=== PATIENT | female | born 1985 | race Caucasian/White ===

== ENCOUNTER 2017-07-05 14:32 | Inpatient (IN) | payer OTHER ==
[2017-07-05] MEDS ORDERED: Buffered Lidocaine 0.9% SYRIN* 5 ML/SYR SYRINGE ONE (15:21)
[2017-07-05] MEDS ORDERED: Dinoprostone* 10 MG VAG.SUPP VAGINAL ONE (16:14)
[2017-07-05 17:10] LABS: ABS Basophils 0 10^3/ul (0-0.2); ABS Eosinophils 0 10^3/ul (0-0.6); ABS Lymphocytes 1.5 10^3/ul (1.0-4.8); ABS Monocytes 0.3 10^3/ul (0-0.8); ABS Neutrophils 5.4 10^3/ul (1.5-7.7); ABS Nucleated RBC 0 10^3/ul; Eosinophil % 0.2 % (0-6); Hematocrit 34 % (35-47); Hemoglobin 11.7 g/dl (12.0-16.0); Lymphocyte % 20.7 % (25-47); Mean Corpuscular HGB Conc 35 g/dl (31-36); Mean Corpuscular Hemoglobin 32 pg (27-31); Mean Corpuscular Volume 91 fL (80-97); Mean Platelet Volume 11 um3 (7.4-10.4); Nucleated Red Blood Cells % 0.1; Platelet Count 155 10^3/ul (150-450); Red Cell Distribution Width 15 % (10.5-15); White Blood Count 7.2 10^3/ul (3.5-10.8)
[2017-07-06] MEDS ORDERED: Dinoprostone* 10 MG VAG.SUPP VAGINAL ONE (10:25)
--- NOTE | 2017-07-06 11:46 | PTEDU ---
Patient Name: ANEUDY LEOS ANEUDY LEOS selected video: Never Ever Shake a Baby to view on 07/06/2017 at 11:45:30 AM from [id number]
--- NOTE | 2017-07-06 11:55 | PTEDU ---
Patient Name: ANEUDY LEOS ANEUDY LEOS selected video: BBOB: Nurturing Your Gorgeous &Growing Baby by to view on 07/06/2017 at 11:54:37 AM [id number]
[2017-07-06] MEDS ORDERED: OBEPIDURAL* 250 ML EPIDURAL ONE (20:36)
[2017-07-06] MEDS ORDERED: Phenylephrine IV* 40 MCG/ML 10 ML SYRINGE IV PUSH PRN ×2 (21:26)
[2017-07-06] MEDS ORDERED: Sodium Citrate/Citric Acid* 15 ML UDC PO PRN (21:26)
[2017-07-06] MEDS ORDERED: OBEPIDURAL* 250 ML EPIDURAL SCH (22:00)
[2017-07-06] MEDS ORDERED: Oxytocin in LR* 20 UNITS/1,000 ML BAG IVPB SCH (23:45)
[2017-07-06] MEDS ORDERED: Oxytocin in LR* 20 UNITS/1,000 ML BAG IVPB ONE (23:50)
[2017-07-07] MEDS ORDERED: Acetaminophen TAB* 325 MG PO PRN (12:27)
[2017-07-07] MEDS ORDERED: Glycerin ADULT SUPP PR PRN (12:27)
[2017-07-07] MEDS ORDERED: Simethicone TAB* 80 MG TAB.CHEW PO SCH (12:30)
[2017-07-07] MEDS: Docusate CAP* 100 MG PO SCH (15:08)
[2017-07-07] MEDS: Ibuprofen TAB* 600 MG PO PRN (15:08)
[2017-07-07] MEDS: Witch Hazel PAD* JAR TOPICAL PRN (15:09)
[2017-07-07] MEDS: Dibucaine 1% 28.35 GM TUBE PR PRN (15:09)
[2017-07-07] MEDS ORDERED: Ammonia Inhalant* 1 EA AMP ONE (16:14)
[2017-07-08] MEDS: Docusate CAP* 100 MG PO SCH ×4 (00:53→21:11)
[2017-07-08] MEDS ORDERED: Phenylephrine INJ* 10 MG/ML 1 ML VIAL (10 MG) ONE (04:51)
[2017-07-08] MEDS ORDERED: Phenylephrine IV* 40 MCG/ML 10 ML SYRINGE ONE (04:52)
[2017-07-08 06:35] LABS: ABS Basophils 0 10^3/ul (0-0.2); ABS Eosinophils 0.1 10^3/ul (0-0.6); ABS Lymphocytes 1.6 10^3/ul (1.0-4.8); ABS Monocytes 0.5 10^3/ul (0-0.8); ABS Neutrophils 9.8 10^3/ul (1.5-7.7); ABS Nucleated RBC 0 10^3/ul; Eosinophil % 0.4 % (0-6); Hematocrit 31 % (35-47); Hemoglobin 10.7 g/dl (12.0-16.0); Mean Corpuscular HGB Conc 35 g/dl (31-36); Mean Corpuscular Hemoglobin 32 pg (27-31); Mean Corpuscular Volume 90 fL (80-97); Mean Platelet Volume 10 um3 (7.4-10.4); Nucleated Red Blood Cells % 0; Platelet Count 133 10^3/ul (150-450); Red Blood Count 3.38 10^6/ul (4.0-5.4); Red Cell Distribution Width 15 % (10.5-15)
[2017-07-08] MEDS: Witch Hazel PAD* JAR TOPICAL PRN (08:44)
[2017-07-08] MEDS: Dibucaine 1% 28.35 GM TUBE PR PRN (08:44)
[2017-07-08] MEDS ORDERED: Ferrous Gluconate TAB* 324 MG TAB PO SCH (09:00)
[2017-07-08] MEDS: Ibuprofen TAB* 600 MG PO PRN ×2 (11:51→17:30)
[2017-07-08 12:36] VITALS: BP 126/99
[2017-07-09] MEDS: Ibuprofen TAB* 600 MG PO PRN ×2 (04:22→10:10)
[2017-07-09] MEDS: Docusate CAP* 100 MG PO SCH (10:10)
[2017-07-09] MEDS: Witch Hazel PAD* JAR TOPICAL PRN (10:49)
[2017-07-09] MEDS: Dibucaine 1% 28.35 GM TUBE PR PRN (10:50)
== END 2017-07-09 11:22 | disposition home or self-care (01) | DRG 775 ==
LOC: MCHOBOUT 14:32 → MCHOB 15:06
PROVIDERS: ADMIT Obstetrics & Gynecology; ATTEND Obstetrics & Gynecology
PROC: 10E0XZZ Delivery of Products of Conception, External Approach (ICD-10-PCS; principal; 2017-07-07)
PROC: 3E033VJ Introduction of Other Hormone into Peripheral Vein, Percutaneous Approach (ICD-10-PCS; 2017-07-07)
PROC: 10907ZC Drainage of Amniotic Fluid, Therapeutic from Products of Conception, Via Natural or Artificial Opening (ICD-10-PCS; 2017-07-07)
PROC: 0HQ9XZZ Repair Perineum Skin, External Approach (ICD-10-PCS; 2017-07-07)
DX: O14.94 Unspecified pre-eclampsia, complicating childbirth (principal); O71.5 Other obstetric injury to pelvic organs; O32.6XX0 Maternal care for compound presentation, not applicable or unspecified; O69.81X0 Labor and delivery complicated by cord around neck, without compression, not applicable or unspecified; Z3A.37 37 weeks gestation of pregnancy; Z37.0 Single live birth
CPT/HCPCS: 36415; 82565; 85025; 86850; 86900; 86901; A9270-GY

== ENCOUNTER 2018-04-23 12:16 | Observation (INO) | payer OTHER ==
[2018-04-23 13:34] LABS: Urine Appearance Cloudy; Urine Blood Negative (Negative); Urine Color Amber; Urine Ketones Trace (Negative); Urine Protein Negative (Negative); Urine Specific Gravity 1.028 (1.010-1.030); Urine Urobilinogen Negative (Negative)
[2018-04-23 13:35] LABS: Hematocrit 38 % (35-47); Hemoglobin 13.2 g/dl (12.0-16.0); Mean Corpuscular HGB Conc 35 g/dl (31-36); Mean Corpuscular Hemoglobin 31 pg (27-31); Mean Corpuscular Volume 89 fL (80-97); Mean Platelet Volume 8.2 fL (7.4-10.4); Platelet Count 253 10^3/ul (150-450); Red Blood Count 4.29 10^6/ul (4.00-5.40); Red Cell Distribution Width 13 % (10.5-15); White Blood Count 11.6 10^3/ul (3.5-10.8)
[2018-04-23 13:58] LABS: EGFR Non-African American 108.2 (>60)
--- NOTE | 2018-04-23 14:04 | ED ---
Abdominal Pain/Female - HPI Summary HPI Summary: A 32 y/o female presents to [facility] with a chief complaint of abd pain from 10: 45 to 11:50 on 04/23/18. She called Dr. Silverio, her PCP, who referred the patient to the ED. She reports that 9 months ago she had a baby, A0, and 5 days after that she had a uterine infection. She claims that her symptoms are similar. However, in the ED she claims that her pain has been alleviated with her pain at onset being a six or seven out of ten and currently her pain being a two or three out of ten. She states 04/15/18 was the beginning of her LNMP and she has been having them for three months. She denies a Hx of ovarian cyst and denies a SHx. She admits to occasional EtOH use. She endorses right abd pain and skin diaphoresis but denies vaginal bleeding, body aches, Fever, Chills , Erythema (eyes), Sore throat, Chest pain, Shortness of Breath, Cough, Vomiting , Dysuria, Hematuria, Myalgia, Edema, Rash and Dizziness. - History of Current Complaint Chief Complaint: EDAbdPain Stated Complaint: LOWER ABD PAIN Time Seen by Provider: 04/23/18 12:43 Hx Obtained From: Patient Onset/Duration: Sudden Onset, Lasting Minutes, Resolved Timing: Intermittent Episode Lasting - 65 mins Severity Initially: Moderate Severity Currently: Mild Pain Intensity: 3 Pain Scale Used: 0-10 Numeric Location: Diffuse - Right Radiates: No Character: Sharp Aggravating Factor(s): Nothing Alleviating Factor(s): Nothing Associated Signs and Symptoms: Positive: Diaphoresis, Nausea. Negative: Cough, Chest Pain, Dizzy, Vaginal Bleeding, Vomiting Allergies/Adverse Reactions: Allergies Allergy/AdvReac Type Severity Reaction Status Date / Time No Known Allergies Allergy Verified 04/23/18 12:25 Home Medications: Home Medications Ibuprofen [Advil] 200 - 400 mg PO Q6H PRN 04/23/18 [History Confirmed 04/23/18] PMH/Surg Hx/FS Hx/Imm Hx Endocrine/Hematology History: Denies: Hx Diabetes Cardiovascular History: Denies: Hx Coronary Artery Disease, Hx Hypertension Infectious Disease History: No Infectious Disease History: Denies: Traveled Outside the [place] in Last 30 Days - Family History Known Family History: Positive: Diabetes - maternal grandmother Negative: Cardiac Disease, Hypertension - Social History Alcohol Use: Occasionally Substance Use Type: Reports: None Smoking Status (MU): Never Smoked Tobacco Review of Systems Negative: Fever, Chills Negative: Erythema Negative: Ear Ache Negative: Chest Pain Negative: Shortness Of Breath, Cough Positive: Abdominal Pain, Nausea. Negative: Vomiting Genitourinary: Negative - vaginal discharge Negative: dysuria, hematuria Musculoskeletal: Negative - body aches Negative: Myalgia, Edema Negative: Rash Neurological: Negative - dizziness All Other Systems Reviewed And Are Negative: Yes Physical Exam - Summary Physical Exam Summary: Constitutional: Well-developed, Well-nourished, Alert. (-) Distressed Skin: Warm, Dry HENT: Normocephalic; Atraumatic Eyes: Conjunctiva normal Neck: Musculoskeletal ROM normal neck. (-) JVD, (-) Stridor, (-) Tracheal deviation Cardio: Rhythm regular, rate normal, Heart sounds normal; Intact distal pulses; The pedal pulses are 2+ and symmetric. Radial pulses are 2+ and symmetric. (-) Murmur Pulmonary/Chest wall: Effort normal. (-) Respiratory distress, (-) Wheezes, (-) Rales Abd: Soft, (+) right adnexal tenderness (-) Distension, (-) Guarding, (-) Rebound Musculoskeletal: (-) Edema Lymph: (-) Cervical adenopathy Neuro: Alert, Oriented x3 Psych: Mood and affect Normal Triage Information Reviewed: Yes Vital Signs On Initial Exam: Initial Vitals Temp Pulse Resp BP Pulse Ox 98.6 F 78 16 99/70 98 04/23/18 12:22 04/23/18 12:22 04/23/18 12:22 04/23/18 12:22 04/23/18 12:22 Vital Signs Reviewed: Yes Diagnostics - Vital Signs Vital Signs Temp Pulse Resp BP Pulse Ox 04/23/18 12:22 98.6 F 78 16 99/70 98 - Laboratory Lab Results: Lab Results 04/23/18 04/23/18 04/23/18 Range/Units 13:04 13:04 13:16 WBC 11.6 H (3.5-10.8) 10^3/ul RBC 4.29 (4.00-5.40) 10^6/ul Hgb 13.2 (12.0-16.0) g/dl Hct 38 (35-47) % MCV 89 (80-97) fL MCH 31 (27-31) pg MCHC 35 (31-36) g/dl RDW 13 (10.5-15) % Plt Count 253 (150-450) 10^3/ul MPV 8.2 (7.4-10.4) fL Sodium 138 (135-145) mmol/L Potassium 3.5 (3.5-5.0) mmol/L Chloride 104 (101-111) mmol/L Carbon Dioxide 28 (22-32) mmol/L Anion Gap 6 (2-11) mmol/L BUN 16 (6-24) mg/dL Creatinine 0.63 (0.51-0.95) mg/dL Est GFR ( Amer) 130.9 (>60) Est GFR (Non-Af Amer) 108.2 (>60) BUN/Creatinine Ratio 25.4 H (8-20) Glucose 95 (70-100) mg/dL Calcium 9.2 (8.6-10.3) mg/dL Total Bilirubin 1.00 (0.2-1.0) mg/dL AST 13 (13-39) U/L ALT 8 (7-52) U/L Alkaline Phosphatase 30 L (34-104) U/L C-Reactive Protein 1.01 (<8.01) mg/L Total Protein 6.7 (6.4-8.9) g/dL Albumin 4.3 (3.2-5.2) g/dL Globulin 2.4 (2-4) g/dL Albumin/Globulin Ratio 1.8 (1-3) Beta HCG, Quant Pending Urine Color Nicole Urine Appearance Cloudy Urine pH 5.0 (5-9) Ur Specific [place] 1.028 (1.010-1.030) Urine Protein Negative (Negative) Urine Ketones Trace A (Negative) Urine Blood Negative (Negative) Urine Nitrate Negative (Negative) Urine Bilirubin Negative (Negative) Urine Urobilinogen Negative (Negative) Ur Leukocyte Esterase Negative (Negative) Urine Glucose Negative (Negative) Result Diagrams: 04/23/18 13:04 04/23/18 13:04 Lab Statement: Any lab studies that have been ordered have been reviewed, and results considered in the medical decision making process. - CT abdomen/pelvis CT Interpretation Completed By: Radiologist Summary of CT Findings: The constellation of findings given the clinical context is consistent with early. appendicitis. No periappendiceal abscess or resulting bowel obstruction. Nonemergent follow-up ultrasound suggested for further characterization of the probable. hepatic hemangioma at the central RIGHT hepatic lobe. Taylor images saved on the [facility] PACS. ED physician has reviewed this imaging report. - Ultrasound No standard instances Ultrasound Interpretation Completed By: Radiologist Summary of Ultrasound Findings: Transvaginal US impression: No suspicious ovarian or adnexal region lesions evident. Physiologic small volume of free fluid at the cul-de-sac and LEFT adnexal region. ED physician has reviewed this imaging report. Appendix US impression: Top normal diameter grossly noncompressible appendix visualized anterior to the RIGHT. psoas muscle. No periappendiceal free fluid, abscess collection, or lymphadenopathy evident to. confirm acute inflammation of the appendix. Tenderness is noted when scanning over the appendix on real-time exam. ED physician has reviewed this imaging report. Re-Evaluation - Re-Evaluation First Eval Re-Evaluation Time: 14:15 Change: Worse Comment: Right adnexal and abd tenderness returned. Discussed CT followed by Pelvic exam. Second Eval Re-Evaluation Time: 15:35 Change: Unchanged Comment: Patient reports the exam is painful but she has a good appetite. Third Eval Re-Evaluation Time: 16:10 Change: Unchanged Comment: Pelvic exam attended by Marysol. Pt has right adnexal tenderness and worsening RLQ abd tenderness. Dr. Hale, surgeon, evaluated her. Plan for CT imaging vs hospital observation. Fourth Eval Re-Evaluation Time: 18:20 Change: Unchanged Comment: Discussed plan with Pt. Abdominal Pain Fem Course/Dx - Course Course Of Treatment: A 32 y/o female presents to [facility] with a chief complaint of abd pain from 10:45 to 11:50 on 04/23/18. She called Dr. Silverio, her PCP, who referred the patient to the ED. She reports that 9 months ago she had a baby , A0, and 5 days after that she had a uterine infection. She claims that her symptoms are similar. However, in the ED she claims that her pain has been alleviated with her pain at onset being a six or seven out of ten and currently her pain being a two or three out of ten. She states 04/15/18 was the beginning of her LNMP and she has been having them for three months. She denies a Hx of ovarian cyst and denies a SHx. She admits to occasional EtOH use. She endorses right abd pain and skin diaphoresis but denies vaginal bleeding, body aches, Fever, Chills, Erythema (eyes), Sore throat, Chest pain, Shortness of Breath, Cough, Vomiting, Dysuria, Hematuria, Myalgia, Edema, Rash and Dizziness. Her physical exam revealed right adnexal tenderness. Transvaginal US impression: No suspicious ovarian or adnexal region lesions evident. Physiologic small volume of free fluid at the cul-de-sac and LEFT adnexal region. Case discussed with Dr. Valentin who reports the patient's appendix is at the top end of normal size and is TTP. Appendix US impression: Top normal diameter grossly noncompressible appendix visualized anterior to the RIGHT. psoas muscle. No periappendiceal free fluid, abscess collection, or lymphadenopathy evident to. confirm acute inflammation of the appendix. Tenderness is noted when scanning over the appendix on real-time exam. In the ED course the patient has been given Iohexol and Sodium Chloride IV. Pelvic exam attended by Marysol. Pt has right adnexal tenderness and worsening RLQ abd tenderness. Dr. Hale, surgeon, evaluated her. Plan for CT imaging vs hospital observation. Lab results obtained with a mildly elevated WBC at 11.6. CT abdomen/pelvis impression: The constellation of findings given the clinical context is consistent with early. appendicitis. No periappendiceal abscess or resulting bowel obstruction. Nonemergent follow-up ultrasound suggested for further characterization of the probable. hepatic hemangioma at the central RIGHT hepatic lobe. Taylor images saved on the [facility] PACS. The patient will be admitted to Dr. Hale and is agreeable with this plan. Dx: RLQ pain, early appendicitis. - Diagnoses Provider Diagnoses: RLQ abdominal pain, Appendicitis - Provider Notifications Discussed Care Of Patient With: Jeremías Valentin Time Discussed With Above Provider: 15:30 Instructed by Provider To: Other - Patient's appendix is at the top end of normal size and is TTP. Discharge - Discharge Plan Referrals: Ayleen Silverio MD [Primary Care Provider] - - Attestation Statements Document Initiated by Scribe: Yes Documenting Scribe: Que Dumont Provider For Whom Scribe is Documenting (Include Credential): Quentin Olsen MD Scribe Attestation: I, Que Dumont, scribed for Quentin Olsen MD on 04/23/18 at [id number]. Consult Consult: At 16:15 Dr. Hale, surgeon evaluated the patient. Plan for CT imaging vs hospital observation. At 18:15 Dr. Hale accepted the pt for admission.
[2018-04-23] MEDS ORDERED: NS 0.9% 1000 ML* 1,000 ML IV ONE (14:16)
[2018-04-23] MEDS ORDERED: Iohexol 300* (CONTRAST) 10 ML SDV IV ONE (15:47)
[2018-04-23] MEDS ORDERED: ceFOXitin 2 GM IVPREMIX* 2 GM/50 ML BAG IVPB ONE (18:16)
[2018-04-23] MEDS ORDERED: Buffered Lidocaine 0.9% SYRIN* 5 ML/SYR SYRINGE INTRADERM ONE (19:26)
[2018-04-23] MEDS ORDERED: Morphine VIAL* 4 MG/ML VIAL (1 ml vial) IV ONE (19:49)
[2018-04-23] MEDS ORDERED: Ondansetron INJ* 2 MG/ML VIAL IV ONE (19:49)
[2018-04-23] MEDS ORDERED: fentaNYL* 50 MCG/ML 2 ML VIAL (100 MCG VIAL) ONE (20:32)
[2018-04-23] MEDS ORDERED: Midazolam* 1 MG/ML 2 ML VIAL (2 MG) ONE (20:32)
[2018-04-23] MEDS ORDERED: Famotidine IV* 10 MG/ML 2 ML (20 mg) ONE (20:32)
[2018-04-23] MEDS ORDERED: ceFOXitin 2 GM IVPREMIX* 2 GM/50 ML BAG ONE (21:07)
[2018-04-23] MEDS ORDERED: Bupivacaine 0.25% EPI 200,000* 30 ML SDV ONE (21:10)
[2018-04-23] MEDS ORDERED: Lidocaine 2% PF * 5 ML VIAL ONE (21:29)
[2018-04-23] MEDS ORDERED: Succinylcholine* 20 MG/ML 10 ML VIAL ONE (21:34)
[2018-04-23] MEDS ORDERED: Cisatracurium* 2 MG/ML MDV 5 ML ONE (21:34)
[2018-04-23] MEDS ORDERED: Ondansetron INJ* 2 MG/ML VIAL ONE (21:34)
[2018-04-23] MEDS ORDERED: Propofol* 10 MG/ML 20 ML BTL ONE (21:34)
[2018-04-23] MEDS ORDERED: Dexamethasone IV* 4 MG/ML 1 ML (4 MG) ONE (21:34)
[2018-04-23] MEDS ORDERED: Ketorolac INJ* 30 MG/ML 1 ML VIAL ONE (21:47)
[2018-04-23] MEDS ORDERED: fentaNYL* 50 MCG/ML 5 ML VIAL (250 MCG VIAL) ONE (22:08)
[2018-04-23] MEDS ORDERED: diPHENhydraMINE IV* 50 MG/ML 1 ml VIAL (BENADRYL) IV PRN (22:14)
[2018-04-23] MEDS ORDERED: fentaNYL* 50 MCG/ML 2 ML VIAL (100 MCG VIAL) IV PRN (22:14)
[2018-04-23] MEDS ORDERED: Naloxone* 0.4 MG/ML 1 ML VIAL IV PRN (22:14)
[2018-04-23] MEDS ORDERED: DiMENhydriNATE IV* 50 MG/ML VIAL IV PUSH PRN (22:14)
[2018-04-23] MEDS ORDERED: PROCHLORPERAZINE INJ 5 MG/ML 2 ML VIAL IV PRN (22:14)
[2018-04-23] MEDS ORDERED: Acetaminophen TAB* 325 MG PO PRN ×2 (22:14→23:06)
[2018-04-23] MEDS ORDERED: HYDROcodone/ACETAMIN 5-325 MG* 1 TAB PO PRN (22:14)
[2018-04-23] MEDS ORDERED: Scopolamine 1.5 mg* PATCH TRANSDERM PRN (22:14)
--- NOTE | 2018-04-23 23:03 | BRIEFOPN ---
Brief Operative Note - Surgery Procedures: Procedures OPERATIVE REPORT PRE-OP: Acute appendicitis POST-OP:Acute suppurative appendicitis PROCEDURE:laparoscopic appendectomy SURGEON: MD Geoffrey ANESTHESIA:Local with General, Dr. Lester ASST:none IVF:One liter of crystalloid EBL:min SPECIMEN:Appendix DRAIN: none WOUND CLASS:3 COMPLICATIONS: none TO PACU
[2018-04-23] MEDS ORDERED: Ketorolac INJ* 30 MG/ML 1 ML VIAL IV PUSH PRN (23:06)
[2018-04-23] MEDS ORDERED: Ondansetron INJ* 2 MG/ML VIAL IV PRN (23:06)
[2018-04-23] MEDS ORDERED: Morphine INJ* 10 MG/ML 1 ML CARPUJECT IV PRN (23:06)
[2018-04-23] MEDS ORDERED: oxyCODONE/Acetamin 5/325 MG* TAB PO PRN ×2 (23:06→23:08)
[2018-04-23] MEDS ORDERED: NS 0.9% 1000 ML* 1,000 ML IV SCH (23:15)
[2018-04-24] MEDS: ceFOXitin 2 GM IVPREMIX* 2 GM/50 ML BAG IVPB SCH ×2 (02:53→10:58)
--- NOTE | 2018-04-24 04:16 | HP ---
CC: Dr. Ayleen Silverio; [facility].* HISTORY AND PHYSICAL: DATE OF ADMISSION: 04/23/18 CHIEF COMPLAINT: Right lower quadrant abdominal pain. HISTORY OF PRESENT ILLNESS: Patel Oj is a 32-year-old [employer] who, around 10 o'clock this morning, developed a sudden onset of severe, sharp, right lower quadrant abdominal pain that lasted for about an hour to an hour-and-a half, which was quite severe and causing her to lie down. For the pain she took some Motrin, the pain improved somewhat but persisted into the early afternoon and when it was becoming somewhat more uncomfortable she presented to the emergency room. In the emergency room, she was noted to be afebrile. She had no associated nausea or vomiting, but was anorexic on presentation. She denied fevers, shakes , or chills. Her last menstrual period was about 8 to 9 days ago and has been unremarkable. She did have a baby about 9 months ago and she denies history of ovarian cysts. She has had no diarrhea or dysuria. In the emergency room, she was noted to be afebrile. Laboratory workup included a white blood cell count of 11,600. She had normal CRP. Her test was negative. Exam showed right lower quadrant tenderness with some voluntary guarding. A pelvic exam done by the emergency room physician was unremarkable. She underwent the following imaging studies: 1. She underwent a transvaginal ultrasound. This showed no suspicious ovarian or adnexal lesions evident. There was a small amount of fluid in the cul-de- sac in the left adnexa region. 2. She underwent an abdominal ultrasound, specifically the right lower quadrant. I reviewed this study with Dr. Valentin. This showed a top normal grossly noncompressible appendix in the right lower quadrant, but no periappendiceal fluid collection or surrounding inflammation, but the wall may have been mildly thickened. 3. After further discussion of the findings on physical exam as well as her imaging studies, she elected and agreed to undergo a CT scan of the abdomen and pelvis. I also reviewed these imagines. This showed findings most likely consistent with early acute appendicitis with mural enhancement and periappendiceal inflammatory change felt to be appendicitis. Surgical consultation was obtained. PAST MEDICAL HISTORY: Unremarkable. PAST SURGICAL HISTORY: None. MEDICATIONS: Include ibuprofen p.r.n. SOCIAL HISTORY: She is a [employer] professor. She is . She has 1 young daughter at home. She does not smoke. Drinks alcohol on a social basis. REVIEW OF SYSTEMS: Otherwise unremarkable. PHYSICAL EXAMINATION GENERAL: She is a well-developed slender female, appears to be in no apparent distress. She is awake, alert, and conversive and pleasant. VITAL SIGNS: Temperature 98.6, pulse 80, respirations 16, and blood pressure 107/40. HEENT: Regular rate and rhythm without murmurs, rubs, or gallops. LUNGS: Clear to auscultation with normal respiratory effort. ABDOMEN: Soft and nondistended. She had diminished bowel sounds throughout. There are no hernias. There is no distention. She has tenderness with some voluntary guarding in the right lower quadrant. There is no pelvic discomfort. EXTREMITIES: Showed no cyanosis or edema. IMPRESSION: Right lower quadrant abdominal discomfort of a rather sudden onset and not particularly typical of acute appendicitis. However as the course of the day has progressed, she is having worsening right lower quadrant abdominal exam. The above imaging studies were done and the CAT scan shows findings consistent with early acute appendicitis without evidence of abscess or perforation. I had a long discussion with the patient and her regarding these findings. We discussed options of nonoperative management with IV and oral antibiotics. She probably would be a candidate for this and we discussed the risks of recurrence and failure of treatment plus a several day hospital stay with IV antibiotics. My recommendation in this situation is to proceed with a laparoscopic appendectomy this evening for definitive care. After the discussion of this matter, she would like to proceed with surgery. PLAN/RECOMMENDATIONS: Laparoscopic appendectomy. The procedure was discussed with the patient and her and the risks of, but not limited to, bleeding , infection, intraabdominal abscess formation, injury to peritoneal and retroperitoneal structures, possibility of an open procedure, the appendiceal stump leak with abscess, possibility this may not be acute appendicitis and other surgical procedures may need to be performed were all explained. In addition, the risks of anesthesia, deep vein thrombosis, and recovery times were all discussed. She will be kept n.p.o. and will receive a preoperative dose of antibiotics and will proceed to the operating room this evening. [id number]/[facility] #: [id number] IVAN
--- NOTE | 2018-04-24 08:58 | PN ---
Progress Note - Progress Note Date of Service: 04/24/18 SOAP: Subjective: Doing well-tolerating po Ambulating to bathroom No N/V Objective: Temp Pulse Resp BP Pulse Ox 98.2 F 62 16 92/59 97 04/24/18 02:56 04/24/18 02:56 04/24/18 02:56 04/24/18 02:56 04/24/18 02:56 Intake & Output 04/22/18 04/23/18 04/24/18 04/25/18 06:59 06:59 06:59 06:59 Intake Total 2760 990 Output Total 400 Balance 2360 990 Weight 118 lb Intake: IV Fluids 2280 990 ABX - CEFOXITIN 55 NS 990 lr 1000 Oral 480 Output: Urine 400 PEX: Comfortable Lungs are clear Abd is soft and non-distended. Bowel sounds are present. Incision CDI Assessment: POD# 1 s/p lap appy for acute appendicitis Plan: D/C home today No further antibiotics Instructions given Follow up in office next week.
[2018-04-24 09:45] VITALS: BP 84/46
--- NOTE | 2018-04-24 15:57 | OP ---
CC: Ayleen Silverio MD, [facility] * DATE OF OPERATION: 04/23/18 - ROOM #340 DATE OF : 81 SURGEON: Landen Hale MD HR ADMINISTRATOR: None. ANESTHESIOLOGIST: Dr. Lester. ANESTHESIA: General with local. PRE-OP DIAGNOSIS: Acute appendicitis. POST-OP DIAGNOSIS: Acute suppurative appendicitis. OPERATIVE PROCEDURE: Laparoscopic appendectomy. ESTIMATED BLOOD LOSS: Minimal. WOUND CLASSIFICATION: 3 DRAINS: None. COMPLICATIONS: None. SPECIMENS: Appendix. DESCRIPTION OF PROCEDURE: Written informed consent was obtained, the abdomen was marked with indelible ink and preoperative antibiotics were administered. The patient was taken to the operating room, placed in the supine position where sequential compression devices and a warming blanket were applied. General anesthesia was administered and the abdomen was prepped and draped in usual sterile fashion. Time-out verification was completed. Initially, a vertical incision was made at the base of the umbilicus and inferior, and the peritoneal cavity was entered under direct vision. A 12 mm port was then placed and the abdomen was insufflated to 15 mmHg. Under direct vision, a 5 mm left lower quadrant abdominal port was placed and a second 5 mm suprapubic port was placed. There was a small amount of turbid fluid in the right lower quadrant. This was irrigated and suctioned. The terminal ileum and cecum appeared to be unremarkable. The appendix was identified. It was suppuratively inflamed with some fibrinous exudate mainly along its distal half, and was quite firm and indurated. It was grasped and its mesentery was taken from distal to proximal towards the cecum. The proximal third of the appendix was somewhat peritonealized and this was divided to follow the appendix down to the base. The appendix at its base as well as the cecum were unremarkable. Boswell load of a 45 mm EndoGIA staple was then used to divide the appendix at its base. The appendix was placed in an EndoCatch bag and brought out through the umbilical incision. Staple line was intact and hemostasis was assured. The right lower quadrant was irrigated thoroughly. All ports were removed under direct vision of the camera and the umbilical fascia was closed with interrupted 0 Vicryl suture. Skin at all 3 incisions was approximated with subcuticular 4-0 Vicryl suture. Steri-Strips were applied. The patient tolerated the procedure well and was taken to the recovery room in stable condition. [id number]/[facility] #: [id number] IVAN
[2018-04-26] MEDS ORDERED: Scopolamine PATCH Remove* 1 NOTE MISC PATCH OFF ONE (22:16)
== END 2018-04-24 11:45 | disposition home or self-care (01) ==
LOC: ED 12:16 → OR 21:23 → SSU 23:55
PROVIDERS: ADMIT Surgery; ATTEND Surgery
DX: K35.80 Unspecified acute appendicitis (principal); R10.30 Lower abdominal pain, unspecified; R11.0 Nausea
CPT/HCPCS: 36415; 74177; 76705; 76830; 80053; 81003; 84702; 85027; 86140; 87480; 87491; 87510; 87591; 87661; 88304; 90471; 90686; 96365; 96366; 96375; 96376; 99284; A9270-GY; G0008; G0378; J0330; J0694; J1100; J1885; J2250; J2405; J2704; J3010; Q9967

== ENCOUNTER 2020-09-04 22:00 | Inpatient (IN) ==
[2020-09-04] MEDS ORDERED: Lactated Ringers 1000 ml BAG 1,000 ML IV ONE (23:20)
[2020-09-04] MEDS ORDERED: Buffered Lidocaine 1% SYRIN 1 ml INTRADERM ONE (23:20)
[2020-09-04 23:36] LABS: ABS Lymphocytes 1.6 10^3/ul (1.0-4.8); ABS Monocytes 0.4 10^3/ul (0-0.8); ABS Neutrophils 4.3 10^3/ul (1.5-7.7); Eosinophil % 0.7 %; Hematocrit 30 % (35-47); Hemoglobin 10.3 g/dL (12.0-16.0); Lymphocyte % 24.5 %; Mean Corpuscular HGB Conc 35 g/dL (31-36); Mean Corpuscular Hemoglobin 30 pg (27-31); Mean Corpuscular Volume 85 fL (80-97); Mean Platelet Volume 9.9 fL (7.4-10.4); Platelet Count 173 10^3/uL (150-450); Red Cell Distribution Width 15 % (10-15); White Blood Count 6.4 10^3/uL (3.5-10.8)
[2020-09-04] MEDS ORDERED: Lactated Ringers 1000 ml BAG 1,000 ML IV SCH (23:45)
[2020-09-04] MEDS ORDERED: OBEPIDURAL 250 ML EPIDURAL ONE (23:58)
[2020-09-05 00:07] LABS: Urine Benzodiazepine Screen None Detected (None Detect); Urine Cannabinoids Screen None Detected (None Detect); Urine Opiates Screen None Detected (None Detect)
[2020-09-05] MEDS ORDERED: Lactated Ringers 1000 ml BAG 500 ML IV PRN ×2 (01:13)
[2020-09-05] MEDS ORDERED: Lactated Ringers 1000 ml BAG 1,000 ML IV ONE (01:13)
[2020-09-05] MEDS ORDERED: Sodium Citrate/Citric Acid LIQ 15 ML UDC PO PRN (01:13)
[2020-09-05] MEDS ORDERED: Phenylephrine 40 mcg/mL 10mL (400mcg) SYRINGE IV PUSH PRN ×2 (01:13)
[2020-09-05] MEDS ORDERED: Lactated Ringers 1000 ml BAG 1,000 ML IV SCH ×2 (02:00→06:00)
[2020-09-05] MEDS ORDERED: OBEPIDURAL 250 ML EPIDURAL SCH (02:00)
[2020-09-05] MEDS ORDERED: Oxytocin in LR 0 UNITS/0 ML BAG IVPB ONE (05:29)
[2020-09-05] MEDS: Witch Hazel PAD JAR TOPICAL PRN (08:46)
[2020-09-05] MEDS: Dibucaine 1% OINT 28.35 GM TUBE PR PRN (08:46)
[2020-09-06 06:50] LABS: ABS Eosinophils 0.1 10^3/ul (0-0.6); ABS Lymphocytes 1.6 10^3/ul (1.0-4.8); ABS Monocytes 0.3 10^3/ul (0-0.8); ABS Neutrophils 4.7 10^3/ul (1.5-7.7); Eosinophil % 0.9 %; Hematocrit 24 % (35-47); Hemoglobin 8.3 g/dL (12.0-16.0); Lymphocyte % 23.6 %; Mean Corpuscular HGB Conc 34 g/dL (31-36); Mean Corpuscular Hemoglobin 29 pg (27-31); Mean Corpuscular Volume 86 fL (80-97); Mean Platelet Volume 9.2 fL (7.4-10.4); Platelet Count 136 10^3/uL (150-450); Red Blood Count 2.83 10^6 /uL (3.70-4.87); Red Cell Distribution Width 15 % (10-15); White Blood Count 6.6 10^3/uL (3.5-10.8)
[2020-09-06] MEDS: Calcium Carb (TUMS) 500 mg CHEW TAB PO PRN ×3 (09:53→20:21)
[2020-09-07 08:04] VITALS: BP 121/82
[2020-09-07] MEDS: Witch Hazel PAD JAR TOPICAL PRN (10:55)
[2020-09-07] MEDS: Dibucaine 1% OINT 28.35 GM TUBE PR PRN (10:55)
== END 2020-09-07 11:23 | disposition home or self-care (01) ==
LOC: MCHOBOUT 22:00 → MCHOB 22:56
PROVIDERS: ADMIT Obstetrics & Gynecology; ATTEND Obstetrics & Gynecology

== ENCOUNTER 2022-10-25 22:25 | Inpatient (IN) ==
[2022-10-25] MEDS ORDERED: Penicillin G Potassium IV 5,000,000 UNITS in NS 0.9% 100 ml BAG 100 ML IVPB ONE (22:27)
[2022-10-25] MEDS ORDERED: Buffered Lidocaine 1% SYRIN 1 ml INTRADERM ONE (22:27)
[2022-10-25] MEDS ORDERED: Promethazine INJ(RESTRICTED) 25 MG/ML 1 ml VIAL IV PRN (22:27)
[2022-10-25] MEDS ORDERED: Nalbuphine 10 MG/ML 1 ML VIAL IV PRN (22:27)
[2022-10-25 22:57] LABS: ABS Basophils 0.1 10^3/uL (0.0-0.1); ABS Eosinophils 0.1 10^3/uL (0.0-0.5); ABS Lymphocytes 1.8 10^3/uL (1.0-4.8); ABS Monocytes 0.5 10^3/uL (0.0-0.9); ABS Neutrophils 4.3 10^3/uL (1.5-7.6); Eosinophil % 0.9 %; Hematocrit 33.3 % (35-45); Hemoglobin 11.8 g/dL (11.5-14.3); Lymphocyte % 26.6 %; Mean Corpuscular Hemoglobin 31.3 pg (27-33); Mean Corpuscular Hgb Conc 35.5 g/dL (31-36); Mean Corpuscular Volume 88.2 fL (80-97); Mean Platelet Volume 8.8 fL (7.5-11.2); Nucleated Red Blood Cells % 0.1 /100 WBC (0.0-0.4); Platelet Count 209 10^3/uL (150-450); Red Blood Count 3.78 10^6/uL (3.63-4.92); Red Cell Distribution Width 14.7 % (12-17); White Blood Count 6.7 10^3/uL (3.8-11.8)
[2022-10-25] MEDS: Penicillin G Potassium IV 3,000,000 UNITS in NS 0.9% 100 ml BAG 100 ML IVPB SCH (23:30)
[2022-10-25 23:32] LABS: Urine Benzodiazepine Screen None Detected (None Detect); Urine Cannabinoids Screen None Detected (None Detect); Urine Opiates Screen None Detected (None Detect)
[2022-10-26] MEDS: Lactated Ringers 1000 ml BAG 1,000 ML IV SCH ×2 (00:03→09:09)
[2022-10-26] MEDS: Penicillin G Potassium IV 3,000,000 UNITS in NS 0.9% 100 ml BAG 100 ML IVPB SCH ×4 (03:48→12:01)
[2022-10-26] MEDS: Lactated Ringers 1000 ml BAG 1,000 ML IV ONE ×2 (06:23→12:23)
[2022-10-26] MEDS ORDERED: Oxytocin in LR 20,000 MILLI.UNIT/1,000 ML BAG IV SCH ×2 (08:30→16:45)
[2022-10-26] MEDS ORDERED: OBEPIDURAL (200 ML) 200 ML EPIDURAL ONE (12:24)
[2022-10-26] MEDS ORDERED: Lidocaine 1% w EPI 1:200,000 SDV 30 ML VIAL ONE (12:25)
[2022-10-26] MEDS ORDERED: Sodium Citrate/Citric Acid LIQ 15 ML UDC PO PRN (13:10)
[2022-10-26] MEDS ORDERED: Lactated Ringers 1000 ml BAG 500 ML IV PRN ×2 (13:10)
[2022-10-26] MEDS ORDERED: Phenylephrine 40 mcg/mL 10mL (400mcg) SYRINGE IV PUSH PRN ×2 (13:10)
[2022-10-26] MEDS ORDERED: Lactated Ringers 1000 ml BAG 1,000 ML IV ONE (13:10)
[2022-10-26] MEDS ORDERED: OBEPIDURAL (200 ML) 200 ML EPIDURAL SCH (14:00)
[2022-10-26] MEDS ORDERED: Lactated Ringers 1000 ml BAG 1,000 ML IV SCH ×3 (14:00→17:00)
[2022-10-26 14:35] LABS: Urine Appearance Clear; Urine Bilirubin Negative (Negative); Urine Blood Negative (Negative); Urine Color Yellow; Urine Glucose Negative (Negative); Urine Ketones Negative (Negative); Urine Nitrite Negative (Negative); Urine Protein Negative (Negative); Urine Specific Gravity 1.012 (1.002-1.030); Urine Urobilinogen Negative (Negative)
[2022-10-26] MEDS ORDERED: Witch Hazel PAD JAR TOPICAL PRN (16:39)
[2022-10-26] MEDS ORDERED: Glycerin ADULT 2.4 gm SUPP PR PRN (16:39)
[2022-10-26] MEDS ORDERED: Dibucaine 1% OINT 28.35 GM TUBE PR PRN (16:39)
[2022-10-27 06:36] LABS: ABS Eosinophils 0.1 10^3/uL (0.0-0.5); ABS Lymphocytes 2.2 10^3/uL (1.0-4.8); ABS Monocytes 0.6 10^3/uL (0.0-0.9); ABS Neutrophils 6.9 10^3/uL (1.5-7.6); Eosinophil % 0.7 %; Hematocrit 30.9 % (35-45); Hemoglobin 10.9 g/dL (11.5-14.3); Lymphocyte % 22.3 %; Mean Corpuscular Hemoglobin 31.4 pg (27-33); Mean Corpuscular Hgb Conc 35.3 g/dL (31-36); Mean Platelet Volume 8.5 fL (7.5-11.2); Platelet Count 176 10^3/uL (150-450); Red Blood Count 3.47 10^6/uL (3.63-4.92); Red Cell Distribution Width 14.9 % (12-17); White Blood Count 9.7 10^3/uL (3.8-11.8)
[2022-10-27] MEDS ORDERED: Measles, Mumps,Rubella VACC 0.5 ML/VIAL SUBCUT ONE (10:35)
[2022-10-27] MEDS ORDERED: Varicella Virus Vaccine Live 0.5 ML VIAL SUBCUT ONE (10:36)
[2022-10-28 08:37] VITALS: BP 97/57
== END 2022-10-28 13:05 | disposition home or self-care (01) | DRG 807 ==
LOC: MCHOBOUT 22:25 → MCHOB 22:26
PROVIDERS: ADMIT Obstetrics & Gynecology; ATTEND Obstetrics & Gynecology